=== PATIENT | female | born 1940 | race Caucasian/White ===

== ENCOUNTER 2023-02-05 20:41 | Inpatient (IN) | payer OTHER ==
[~2023-02-05] VITALS: Ht 157.5 cm; Wt 199.6 kg
[~2023-02-05 20:41] MED LIST: IBUPROFEN800 MG PO; ORPH100T PO
--- NOTE | 2023-02-05 20:50 | NUR ---
PTE ALERTA Y ORIENTADA POR LOBO ESFERAS CON BUEN PATRON RESPIRATORIO REFIERE QUE LE CATHY "UN BAJON DE AZUCAR Y PERDIO CONOCIMIENTO", NO RELAJO ESFINTER.
[2023-02-05 21:54] LABS: HEMATOCRIT 35.6 % (36.0-45.00); HEMOGLOBIN 11.5 g/dL (12.0-15.00); MEAN CELL VOLUME 91.5 fL (80.00-100.00); MEAN CORPUSCULAR HEMOGLOBIN 29.7 pg (27.00-32.0); MEAN CORPUSCULAR HGB CONC 32.4 g/dl (32.0-36.0); PLATELET COUNT 233 K/uL (150-450); RED BLOOD COUNT 3.89 M/uL (4.00-6.00); RED CELL DISTRIBUTION WIDTH 13.6 % (11.5-14.5)
[2023-02-05 22:16] LABS: CALCIUM 9.4 mg/dL (8.5-10.1); CREATININE SERUM 1.23 mg/dL (0.55-1.02); GFR 41.8; POTASSIUM 3.67 mEq/L (3.5-5.1)
--- NOTE | 2023-02-05 22:17 | NUR ---
SE ORIENTA PTE Y FAMILIAR SOBRE TX A SEGUIR, EL CUAL REFIEREN ENTENDER. SE COLECTAN MUESTRAS Y SE CANALIZA PTE UTILIZANDO MEDIDAS ASEPTICAS. SE ADM. MEDICAMENTOS JORI ORDEN MEDICA BAJO MEDIDAS ASEPTICAS. SE REALIZA EKG Y SE LE PRESENTA A DR. LOZANO.
[2023-02-05 23:16] LABS: PH,URINE 5.5 (5.0-8.0); URINE APPEARANCE Clear; URINE BILIRRUBIN Negative (NEGATIVE); URINE BLOOD Negative; URINE COLOR Yellow; URINE GLUCOSE Negative (NEGATIVE); URINE LEUKOCYTE Trace; URINE NITRATE Negative; URINE PROTEIN 30 (NEGATIVE); URINE UROBILINOGEN 0.2 E.U./dl
[2023-02-05 23:20] LABS: URINE BACTERIA 4117.2 uL (0.0-1933); URINE EPITHELIAL CELLS 51.7 uL (0.0-38.8); URINE RBC 2.7 uL (0.0-20.8); URINE WBC 24.5 uL (0.0-23.2)
[2023-02-06 00:49] LABS: INR 0.95; PARTIAL THROMBOPLASTIN TIME 32.4 SECONDS (22.0-34.0)
[2023-02-06] MEDS ORDERED: DICLOFENAC SODI75 MG (09:23)
[2023-02-06] MEDS ORDERED: AMLODIPINE BESYL5 MG (09:23)
[2023-02-06] MEDS ORDERED: CARVEDILOL6.25 M1 (09:23)
[2023-02-06] MEDS ORDERED: ROSUVASTATIN CA10 MG (09:24)
[2023-02-06] MEDS ORDERED: HUMALOG MI100 UNIT/2 (09:24)
[2023-02-06] MEDS ORDERED: IBANDRONATE SO150 MG (09:24)
[2023-02-06] MEDS ORDERED: METFORMIN HCL1000 M3 (09:24)
[2023-02-06] MEDS ORDERED: LOSARTAN-HCTZ1 EAC1 (09:24)
[2023-02-07 00:38] LABS: PH,URINE 5.5 (5.0-8.0); URINE APPEARANCE Clear; URINE BILIRRUBIN Negative (NEGATIVE); URINE BLOOD Negative; URINE COLOR Yellow; URINE GLUCOSE Negative (NEGATIVE); URINE LEUKOCYTE Negative; URINE NITRATE Negative; URINE PROTEIN Negative (NEGATIVE); URINE UROBILINOGEN 0.2 E.U./dl
[2023-02-07 00:42] LABS: URINE BACTERIA 280.8 uL (0.0-1933); URINE EPITHELIAL CELLS 38.1 uL (0.0-38.8); URINE WBC 19.4 uL (0.0-23.2)
[2023-02-07 01:02] LABS: URINE RBC 1.2 uL (0.0-20.8)
[2023-02-07 06:12] LABS: HEMATOCRIT 32.6 % (36.0-45.00); HEMOGLOBIN 11.1 g/dL (12.0-15.00); MEAN CORPUSCULAR HEMOGLOBIN 30.6 pg (27.00-32.0); PLATELET COUNT 222 K/uL (150-450); RED BLOOD COUNT 3.62 M/uL (4.00-6.00); RED CELL DISTRIBUTION WIDTH 13.8 % (11.5-14.5)
[2023-02-07 06:39] LABS: ALBUMIN 3.3 gm/dL (3.4-5.0); BILIRUBIN TOTAL 0.27 mg/dL (0.3-1.2); CALCIUM 8.5 mg/dL (8.5-10.1); CREATININE SERUM 0.77 mg/dL (0.55-1.02); GFR 71.77; GLOBULINA 3.1 G/DL (2.4-3.5); PHOSPHOROUS 3.3 mg/dL (2.5-4.9); POTASSIUM 4.53 mEq/L (3.5-5.1); TOTAL PROTEIN 6.4 gm/dL (6.4-8.2)
[2023-02-09 08:46] LABS: ALBUMIN 3.2 gm/dL (3.4-5.0); BILIRUBIN TOTAL 0.24 mg/dL (0.3-1.2); CALCIUM 8.8 mg/dL (8.5-10.1); CREATININE SERUM 0.84 mg/dL (0.55-1.02); GFR 64.91; GLOBULINA 2.9 G/DL (2.4-3.5); PHOSPHOROUS 3.3 mg/dL (2.5-4.9); POTASSIUM 3.99 mEq/L (3.5-5.1); TOTAL PROTEIN 6.1 gm/dL (6.4-8.2)
[2023-02-09 10:08] LABS: HEMOGLOBIN 10.7 g/dL (12.0-15.00); MEAN CELL VOLUME 90.9 fL (80.00-100.00); MEAN CORPUSCULAR HEMOGLOBIN 29.5 pg (27.00-32.0); MEAN CORPUSCULAR HGB CONC 32.5 g/dl (32.0-36.0); PLATELET COUNT 214 K/uL (150-450); RED BLOOD COUNT 3.63 M/uL (4.00-6.00); RED CELL DISTRIBUTION WIDTH 13.2 % (11.5-14.5)
[2023-02-11 06:23] LABS: HEMATOCRIT 29.8 % (36.0-45.00); HEMOGLOBIN 10.1 g/dL (12.0-15.00); MEAN CELL VOLUME 89.1 fL (80.00-100.00); MEAN CORPUSCULAR HEMOGLOBIN 30.1 pg (27.00-32.0); MEAN CORPUSCULAR HGB CONC 33.8 g/dl (32.0-36.0); PLATELET COUNT 203 K/uL (150-450); RED BLOOD COUNT 3.35 M/uL (4.00-6.00); RED CELL DISTRIBUTION WIDTH 13.5 % (11.5-14.5)
[2023-02-11 06:53] LABS: ALBUMIN 3.1 gm/dL (3.4-5.0); BILIRUBIN TOTAL 0.3 mg/dL (0.3-1.2); CALCIUM 8.7 mg/dL (8.5-10.1); CREATININE SERUM 0.79 mg/dL (0.55-1.02); GFR 69.67; GLOBULINA 2.9 G/DL (2.4-3.5); MAGNESIUM 1.9 mg/dL (1.8-2.4); PHOSPHOROUS 3.9 mg/dL (2.5-4.9); POTASSIUM 3.94 mEq/L (3.5-5.1)
[2023-02-11] MEDS ORDERED: GABAPENTIN100 MG PO (16:04)
== END 2023-02-11 17:56 | disposition home or self-care (01) | DRG 690 ==
LOC: ER 20:41 → MEDI 23:22
PROVIDERS: Emergency Medicine; General Practice; Internal Medicine Infectious Disease; ADMIT Internal Medicine; ATTEND Internal Medicine
PROC: BW28ZZZ Computerized Tomography (CT Scan) of Head (ICD-10-PCS; principal; 2023-02-05)
PROC: B24BZZZ Ultrasonography of Heart with Aorta (ICD-10-PCS; 2023-02-05)
PROC: B345ZZZ Ultrasonography of Bilateral Common Carotid Arteries (ICD-10-PCS; 2023-02-06)
DX: N39.0 Urinary tract infection, site not specified (principal); N17.9 Acute kidney failure, unspecified; R55 Syncope and collapse; I65.21 Occlusion and stenosis of right carotid artery; D64.9 Anemia, unspecified; E11.65 Type 2 diabetes mellitus with hyperglycemia; Z79.4 Long term (current) use of insulin; I11.9 Hypertensive heart disease without heart failure; F03.90 Unspecified dementia, unspecified severity, without behavioral disturbance, psychotic disturbance, mood disturbance, and anxiety; G62.9 Polyneuropathy, unspecified